=== PATIENT | female | born 1935 | race American Indian/Alaskan Native ===

== ENCOUNTER 2016-11-17 14:11 | Outpatient (CLI) | payer MEDICARE ==
--- NOTE | 2016-11-18 07:47 | XRay Report ---
Right femur 2 views: History: Pain. Findings: No fracture previously treated lesion. Impression: Essentially negative right femur.
--- NOTE | 2016-11-18 07:50 | XRay Report ---
Pelvis and bilateral hips: History: Leg pain. Findings: There is calcification noted at superior left sacroiliac joint. This may be related to old injury. Irregularity is noted of the adjacent sacral promontory. Focal 4 mm calcification mid sacrum probably nonspecific. Mild arthritic changes right and left hip. No soft tissue calcification. Impression: Findings as detailed above. If clinically indicated further evaluation may be recommended.
--- NOTE | 2016-11-18 09:10 | Mammography Report ---
BILATERAL DIGITAL SCREENING MAMMOGRAM with CAD: 11/17/16 14:11:00 CLINICAL: Routine screening. COMPARISON:06/18/14 FINDINGS: There are scattered areas of fibroglandular density.Left central biopsy clip. No mass, architectural distortion or suspicious calcifications. IMPRESSION: No mammographic evidence of malignancy. BI-RADS CATEGORY: 2 -- Benign RECOMMENDATION: Routine mammographic screening in one year. COMMENT: Patient follow-up letters are generated by our [employer] application.
== END 2016-11-17 14:12 | disposition home or self-care (01) ==
LOC: SPVWC 14:11
DX: Z12.31 Encounter for screening mammogram for malignant neoplasm of breast (principal); M13.852 Other specified arthritis, left hip; M13.851 Other specified arthritis, right hip; M25.852 Other specified joint disorders, left hip; M25.851 Other specified joint disorders, right hip; I10 Essential (primary) hypertension; Z87.891 Personal history of nicotine dependence; Z79.899 Other long term (current) drug therapy
CPT/HCPCS: 73521; 73552; G0202; 77067

== ENCOUNTER 2016-12-09 12:25 | Outpatient (CLI) | payer MEDICARE ==
[2016-12-09 12:56] LABS: Hematocrit 39.6 % (30.3-42.9); Hemoglobin 12.7 gm/dl (10.1-14.3); Mean Corpuscular HGB Conc 32 % (30-34); Mean Corpuscular Hemoglobin 29 pg (28-32); Mean Corpuscular Volume 89 fl (79-97); Platelet Count 219 K/mm3 (140-440); Red Blood Count 4.46 M/mm3 (3.65-5.03); Red Cell Distribution Width 16.8 % (13.2-15.2); White Blood Count 6.1 K/mm3 (4.5-11.0)
[2016-12-09 13:21] LABS: Erythrocyte Sedimentation Rate 33 mm/Hr (0-20)
[2016-12-09 13:44] LABS: Alanine Aminotransferase 10 units/L (7-56); Albumin 4.1 g/dL (3.9-5); Albumin/Globulin Ratio 1.2 %; Alkaline Phosphatase 137 units/L (35-129); Anion Gap 20 mmol/L; Blood Urea Nitrogen 14 mg/dL (7-17); Calcium 9.1 mg/dL (8.4-10.2); Carbon Dioxide 26 mmol/L (22-30); Chloride 101.1 mmol/L (98-107); Glucose 109 mg/dL (65-100); Potassium 4.9 mmol/L (3.6-5.0); Sodium 142 mmol/L (137-145); Total Protein 7.5 g/dL (6.3-8.2)
== END 2016-12-09 12:26 | disposition home or self-care (01) ==
LOC: LAB 12:25
PROVIDERS: ATTEND Specialist
DX: M31.6 Other giant cell arteritis (principal); I10 Essential (primary) hypertension; Z87.891 Personal history of nicotine dependence
CPT/HCPCS: 36415; 80053; 85027; 85652

== ENCOUNTER 2017-04-28 11:06 | Outpatient (CLI) | payer MEDICARE ==
--- NOTE | 2017-04-28 14:13 | Nuclear Medicine Report ---
NUCLEAR MEDICINE GASTRIC EMPTYING SCAN History: Nausea. Findings: Anterior abdominal images were obtained for 90 minutes following ingestion of 1.0 mCi of technetium 99m sulfur colloid in oatmeal. Half life for gastric emptying measures 32 minutes. No scintigraphic evidence for reflux disease. Impression: Normal gastric emptying.
== END 2017-04-28 11:07 | disposition home or self-care (01) ==
LOC: NM 11:06
PROVIDERS: ATTEND Internal Medicine Gastroenterology
DX: R11.0 Nausea (principal)
CPT/HCPCS: 78264; A9541

== ENCOUNTER 2017-06-03 13:33 | Outpatient (CLI) | payer MEDICARE ==
--- NOTE | 2017-06-03 15:15 | XRay Report ---
XRAY LUMBAR SPINE THREE VIEWS: 06/03/17 13:33:00 CLINICAL: Back pain. FINDINGS: Moderate levoscoliosis centered at L3-4. Grade I L5-S1 spondylolisthesis with no pars defects identified. The rest of the bodies are in normal alignment. Normal vertebral body height. Degenerative disc disease at all levels. The greatest narrowing is accompanied by vacuum disc phenomenon at L5-S1, L4-5, L3-4 and L2-3. Large anterior and lateral osteophytes. Multilevel facet joint disease. The pedicles are intact. No fracture. Normal soft tissues. IMPRESSION: Scoliosis and extensive multilevel degenerative disc disease and facet joint disease.
== END 2017-06-03 13:34 | disposition home or self-care (01) ==
LOC: SPVIMAG 13:33
DX: M51.36 Other intervertebral disc degeneration, lumbar region (principal); M41.86 Other forms of scoliosis, lumbar region; M43.16 Spondylolisthesis, lumbar region
CPT/HCPCS: 72100

== ENCOUNTER 2020-01-03 14:00 | Outpatient (CLI) | payer MEDICARE | END 2020-01-03 14:01 | disposition home or self-care (01) | LOC: SPVWC 14:00 | PROVIDERS: ATTEND Family Medicine | DX: Z12.31 Encounter for screening mammogram for malignant neoplasm of breast (principal) | CPT/HCPCS: 77067 ==

== ENCOUNTER 2021-01-03 12:42 | Outpatient (CLI) | payer MEDICARE ==
--- NOTE | 2021-01-06 11:20 | Mammography Report ---
DIGITAL SCREENING MAMMOGRAM WITH CAD, 01/03/2021 CLINICAL INFORMATION / INDICATION: Routine screening mammography. SCREENING MAMMO Z12.31 TECHNIQUE: Digital bilateral 2D mammography was obtained in the craniocaudal and mediolateral obliqu e projections. This examination was interpreted with the benefit of Computer-Aided Detection analysis . COMPARISON: 01/03/2020, 11/17/2016. FINDINGS: Breast Density: There are scattered areas of fibroglandular density. No dominant mass, suspicious calcifications, or architectural distortion in either breast. IMPRESSION: No mammographic evidence of malignancy. Follow up recommendation: Routine yearly BI-RADS Category 1: Negative. A "normal" or negative report should not discourage follow up or biopsy of a clinically significant f inding. A written summary of these findings will be mailed to the patient. The patient will be entered into a mammography reporting system which will generate a reminder letter for the patient's next appointmen t at the appropriate interval. The [employer] recommends yearly mammograms starting at age 40 and continuing as l tamanna as a woman is in good health. Breast MRI is recommended for women with an approximate 20-25% or greater lifetime risk of breast cancer, including women with a strong family history of breast or ova ingrid cancer or who have been treated for Hodgkin's disease. Signer Name: Ke Hogan MD Signed: 01/06/2021 11:15 AM Workstation Name: [id number]
== END 2021-01-03 12:43 | disposition home or self-care (01) ==
LOC: SPVWC 12:42
PROVIDERS: ATTEND Family Medicine
DX: Z12.31 Encounter for screening mammogram for malignant neoplasm of breast (principal)
CPT/HCPCS: 77067